=== PATIENT | female | born 1950 | race Caucasian/White ===

== ENCOUNTER 2018-01-15 01:24 | Inpatient (IN) | payer OTHER ==
[~2018-01-15] VITALS: Ht 160 cm; Wt 60.8 kg
[~2018-01-15 01:24] MED LIST: AMBIEN10 M1 PO; EVISTA60 MG PO; NIFEDIPINE ER60 M2 PO; XANAX1 M1 PO
--- NOTE | 2018-01-15 08:53 | Admission Core Measures ---
Acute Coronary Syndrome (CM) ACS Core Measures Acute Coronary Syndrome Diagnosis No Congestive Heart Failure (NEW) CHF Core Measures Congestive Heart Failure Diagnosis No Cerebrovascular Accident (NEW) CVA Core Measures CVA/TIA Diagnosis No Venous Thromboembolism VTE Core Lucia (View Protocol) VTE Risk Factors Surgery No Mechanical VTE Prophylaxis d/t N/A MechProphylax Ordered No VTE Pharm Prophylaxis d/t NA PharmProphylax ordered Problem List As ranked by this Provider includes Assessment & Plan 1. Unilateral primary osteoarthritis, left hip HOME MEDS Home Med List Alprazolam (Xanax) 1 MG TABLET 1 TAB PO BIDP PRN ANXIETY (Reported) Nifedipine (Nifedipine ER) 60 MG TAB.ER.24 1 TAB PO DAILY HTN (Reported) Raloxifene Hydrochloride (Evista) 60 MG TABLET 1 TAB PO DAILY OSTEOPOROSIS ( Reported) Zolpidem Tartrate (Ambien) 10 MG TABLET 1 TAB PO QPMP SLEEP (Reported)
--- NOTE | 2018-01-15 09:12 | Surg Short-stay <48hrs Dis Sum ---
Visit Information Visit Dates Admission Date: 01/15/18 Surgical Short Stay DC Summary Admission Diagnosis: Left hip OA Final Diagnosis: Same s/p L THR Procedure(s): L THR Summary/Significant Findings: Patient was admitted to the hospital for an elective total joint replacement. Procedure was tolerated well and patient was transferred to a general surgical floor. Diet was advanced and tolerated. Physical therapy performed evaluation and treatment. At time of hospital discharge, vital signs were stable, neurovascular status was intact and pain was controlled with the use of oral pain medications. Condition at Discharge: Stable Discharge Disposition: home health services Discharge instructions provided to patient/family: Yes Post discharge follow-up plan: [address] Elizabeth
[2018-01-15] MEDS ORDERED: DILAUDID2 M1 PO (09:21)
[2018-01-15] MEDS ORDERED: PROTONIX20 M1 PO (09:21)
[2018-01-15] MEDS ORDERED: COLACE100 M1 PO (09:21)
[2018-01-15] MEDS ORDERED: MIRALAX17 G1 PO (09:21)
[2018-01-15] MEDS ORDERED: ASPIRIN EC81 M1 PO (09:21)
--- NOTE | 2018-01-15 09:26 | Patient Discharge Instructions ---
Discharge Instructions General Discharge Information You were seen/treated for: Left hip osteoarthritis You had these procedures: Left total hip replacement on 01/15/18 Watch for these problems: Increasing pain despite the use of pain medication Increasing redness, warmth or swelling Drainage of any type from incision Inability to bear weight on operative leg Persistent nausea and vomiting Fever greater than 101.5 degrees Other wound care: Please keep wound clean and dry. No ointments or lotions of any type on or near incision. Your dressing will be changed by your nurse on the second day after your surgery. Daily dry dressing changes are recommended each day thereafter. Do not soak your wound- no tub baths/swimming. You may shower 48hr after surgery. Special Instructions: Aspirin: You are taking this medication to help prevent blood clot formation. Please take with food to protect your stomach lining. Please take as directed. Constipation: Pain medication can cause constipation. It is recommended that you take Colace and Miralax each day. Discontinue this medication if you develop loose stool or diarrhea. If you wish to continue this medication, it is available over the counter. If you are unable to move your bowels or unable to pass gas and are developing bloating, nausea, or vomiting as a result, please contact your doctor. Diet Continue normal diet: Yes Activity Full Activity/No Limits: No Activity Self Limited: Yes Activity Limited to: Weight bear as tolerated Additional ACTIVITY Info: Use rolling walker as needed Acute Coronary Syndrome Inclusion Criteria At DC or during hospital stay patient has or had the following: ACS DIAGNOSIS No Discharge Core Measures Meds if any: Prescribed or Continued at Discharge Meds if any: NOT Prescribed or Continued at Discharge Congestive Heart Failure Inclusion Criteria At DC or during hospital stay patient has or had the following: CHF DIAGNOSIS No Discharge Core Measures Meds if any: Prescribed or Continued at Discharge Meds if any: NOT Prescribed or Continued at Discharge Cerebrovascular accident Inclusion Criteria At DC or during hospital stay patient has or had the following: CVA/TIA Diagnosis No Discharge Core Measures Meds if any: Prescribed or Continued at Discharge Meds if any: NOT Prescribed or Continued at Discharge Venous thromboembolism Inclusion Criteria VTE Diagnosis No VTE Type NONE VTE Confirmed by (Test) NONE Discharge Core Measures - Per Current guidelines, there needs to be overlap - treatment for the first 5 days of Warfarin therapy. - If discharged on Warfarin prior to 5 days of - overlap therapy, the patient will need to be - assessed for post discharge needs including - *Post discharge parental anticoagulation - *Warfarin and/or parental anticoagulation education - *Follow up date to check INR post discharge At least 5 days overlap therapy as Inpatient No Meds if any: Prescribed or Continued at Discharge Note: Overlap Therapy is Warfarin and Anticoagulant Meds if any: NOT Prescribed or Continued at Discharge
--- NOTE | 2018-01-15 10:24 | RADIOLOGY REPORT ---
EXAMINATION: XR HIP, LEFT CLINICAL INFORMATION: Left total hip replacement. COMPARISON: None TECHNIQUE: Two views of the left hip. FINDINGS: Prosthetic components of the left total hip arthroplasty are appropriately aligned. No periprosthetic fracture. Gas from recent surgery is present in the surrounding soft tissues. IMPRESSION: Normal postoperative appearance of the left total hip prosthesis.
[2018-01-15 11:15] VITALS: BP 122/80
[2018-01-15 15:03] VITALS: BP 120/80
--- NOTE | 2018-01-15 15:10 | PN- Orthopedic ---
Subjective Subjective: POSTOP CHECK Patient reports ambulating well with PT. Afterwards, she reports pain in her right thigh that radiated medially and was unrelieved with one dilaudid. She denies taking any medication for breakthrough pain. She states she is tolerating a diet without any nausea or vomiting. She denies any chest pain, shortness of breath, numbness or parathesias. Patient has voided. She offers no other complaints. Objective Vital Signs and I&Os Vital Signs Date Time Temp Pulse Resp B/P B/P Pulse O2 O2 Flow FiO2 Mean Ox Delivery Rate 01/15 1503 97.3 73 18 120/80 98 01/15 1241 96.2 01/15 1115 93.0 62 16 122/80 97 Room Air Intake & Output 01/15 1600 01/15 0801/15 0000 01/14 1600 01/14 0801/14 0000 Intake Total Output Total 600 Balance -600 Output, Urine 600 Patient 134 lb Weight Physical Exam: Gen - appears nauseous in bed in nad with 3L O2 via nc Cardiac - S1S2, RRR Lungs - CTAB Abd - soft, nontender, nondistended Ext - L hip dressing c/d/i, ice, moves all extremities, compartment soft, distal motor an sensory intact, alps in place, no edema or calf tenderness Current Medications: Current Medications Sig/Evan Start time Last Medication Dose Route Stop Time Status Admin Acetaminophen 650 MG Q4P PRN 01/15 1100 AC PO Acetaminophen 0 .STK-MED ONE 01/15 0716 DC PO Acetaminophen 0 .STK-MED ONE 01/15 0715 DC PO Acetaminophen 975 MG ONCE 01/15 0000 DC PO 01/15 2359 Alprazolam 1 MG BID PRN 01/15 0900 AC PO 01/22 0859 Aspirin Buffered 81 MG BID 01/15 2100 AC PO Cefazolin Sodium 2 GM IQ8 01/15 1600 AC N/A 1 UNIT IV 01/16 0029 Cefazolin Sodium 2,000 MG ONCE 01/15 0000 DC IV 01/15 2359 Dextrose/Sodium 1,000 ML .[id number] 01/15 1100 AC Chloride IV Docusate Sodium 100 MG BID 01/15 2100 AC PO Fentanyl Citrate 100 MCG .STK-MED ONE 01/15 0711 DC IM 01/15 0712 Hydromorphone HCl 2 MG ONCE ONE 01/15 1530 DC 01/15 PO 01/15 1531 1531 Hydromorphone HCl 2 MG Q4P PRN 01/15 1100 AC 01/15 PO 1425 Hydromorphone HCl 4 MG Q4P PRN 01/15 1100 AC PO Ketorolac 15 MG Q6 PRN 01/15 0915 AC Tromethamine IV Midazolam HCl 4 MG .STK-MED ONE 01/15 0711 DC IM 01/15 0712 Morphine Sulfate 2 MG Q2P PRN 01/15 1100 AC IV Nifedipine 60 MG DAILY 01/16 09 AC PO Ondansetron HCl 4 MG Q6P PRN 01/15 1100 AC IV Oxycodone HCl 0 .STK-MED ONE 01/15 0715 DC PO Oxycodone HCl 10 MG ONCE 01/15 0000 DC PO 01/15 2359 Polyethylene Glycol 17 GM DAILY 01/16 09 AC PO Promethazine HCl 12.5 MG Q6P PRN 01/15 1100 AC IV 01/22 0859 Tranexamic Acid 2,000 MG .STK-MED ONE 01/15 0711 DC IV 01/15 0712 Zolpidem Tartrate 10 MG AT BEDTIME 01/15 2100 AC PO Assessment/Plan Assessment/Plan 67 F w/ a hx of HTN, anxiety and insomnia who is POD 0 s/p L THR OOB PT, WBAT Cont reg diet, IVF Postop abx - ancef x2 Pain regimen prn DVT ppx - alps, teds, asa 81 bid Home meds ordered Bowel regimen on board Encourage IS Anticipate home with [facility] tomorrow Core Measures Venous Thromboembolism VTE Risk Factors Surgery No Mechanical VTE Prophylaxis d/t N/A MechProphylax Ordered No VTE Pharm Prophylaxis d/t NA PharmProphylax ordered
--- NOTE | 2018-01-15 16:55 | Operative Report ---
Operative/Inv Procedure Report Surgery Date: 01/15/18 Name of Procedure: Left total hip replacement Pre-Operative Diagnosis: Primary left hip DJD Post-Operative Diagnosis: Same Estimated Blood Loss: 250 Surgeon/Dairy Farm Worker: Clara VICTOR,Frank Hall Anesthesia: block Operative/Procedure Note Note: Description of Procedure: The patient was taken to the operating room and positively identified. After induction of spinal anesthesia and administration of appropriate pre-operative antibiotics, the patient was positioned supine on the operating room table and all bony prominences were well padded. After performing a surgical timeout, the left lower extremity was prepped and draped in the usual sterile fashion. A direct anterior approach was made to the left hip. The incision was carried sharply through superficial soft tissues to the level of the fascia. Meticulous hemostasis was maintained with Bovie electocautery. The fascia over the tensor fascia tino muscle was opened sharply and the interval between the TFL and the sartorius was entered bluntly taking care to stay lateral to the lateral femoral cutaneous nerve. Retractors were placed around the femoral neck and the pericapsular fat was identified. The ascending branches of the lateral femoral circumflex vessels were identified and carefully coagulated. The pericapsular fat and anterior capsule were then resected. A napkin ring osteotomy was performed and the femoral head was removed without difficulty. Attention was then turned to the acetabulum. After appropriate placement of retractors, the acetabulum was exposed. Soft tissue was cleaned from the acetabular margin and notch. Overhanging osteophytes were removed and the teardrop was exposed. The acetabulum was then sequentially reamed to accept a 52 mm [place] Tritanium hemispherical solid shell. This was impacted into place in the appropriate position and fitted with a 32 mm Trident X3 zero degree polyethylene insert. Attention was then turned to the femur. After performing the appropriate ligament releases, the proximal femur was exposed. It was then sequentially broached to accept a size #4 [place] Accolade II stem. This was trialed for leg length and stability. The trial component was removed and the final component was impacted into place. The trunnion was carefully cleaned and fit with a 32 mm, +0 Biolox delta ceramic femoral head. The hip was reduced and put through a full range of motion and found to be stable. The articular space was then irrigated with sterile saline. The periarticular soft tissues were infilitrated with Marcaine. The fascial layer was closed with interrupted #1 vicryl suture and the skin was re-approximated with interrupted 2 -0 vicryl. The skin was closed with a running 3-0 V-Lock suture. Steri-strips and a sterile dressing were applied. The patient was awakened and taken to the recovery room in satisfactory condition.
[2018-01-15 19:17] VITALS: BP 118/60
[2018-01-15 23:11] VITALS: BP 124/64
[2018-01-16 06:44] VITALS: BP 122/70
[2018-01-16 08:00] VITALS: BP 118/72
--- NOTE | 2018-01-16 08:10 | PN- Orthopedic ---
Subjective Subjective: pt in bed, complains of aching left thigh, pain when flexing hip. ambulated with PT yesterday. tolerating diet, voiding. denies paresthesias. denies cp/sob Objective Vital Signs and I&Os Vital Signs Date Time Temp Pulse Resp B/P B/P Pulse O2 O2 Flow FiO2 Mean Ox Delivery Rate 01/16 0644 97.6 82 16 122/70 97 Room Air 01/15 2311 98.4 74 16 124/64 96 Room Air 01/15 2218 Room Air Room Air 01/15 1917 97.8 85 20 118/60 98 Room Air 01/15 1503 97.3 73 18 120/80 98 01/15 1241 96.2 01/15 1115 93.0 62 16 122/80 97 Room Air Intake & Output 01/16 1600 01/16 0800 01/16 0000 01/15 1600 01/15 0800 01/15 0000 Intake Total 400 780 Output Total 300 200 600 Balance -300 200 180 Intake, IV 300 300 Intake, Oral 100 480 Number 0 Bowel Movements Output, Urine 300 200 600 Patient 134 lb Weight Physical Exam: gen- NAD resp- clear cardiac- rrr abd- soft, nt ext- left hip soft, dressing clean and dry. distal sensory and motor function intact. 2+ dp pulse Current Medications: Current Medications Sig/Evan Start time Last Medication Dose Route Stop Time Status Admin Acetaminophen 1,000 MG Q6H 01/16 0815 UNVr N/A 1 UNIT IV 01/17 0229 Acetaminophen 650 MG Q4P PRN 01/15 1100 AC PO Acetaminophen 975 MG ONCE 01/15 0000 DC PO 01/15 2359 Alprazolam 1 MG BID PRN 01/15 0900 AC PO 01/22 0859 Aspirin Buffered 81 MG BID 01/15 2100 AC 01/15 PO 2122 Cefazolin Sodium 2 GM IQ8 01/15 1600 DC 01/15 N/A 1 UNIT IV 01/16 0029 2308 Cefazolin Sodium 2,000 MG ONCE 01/15 0000 DC IV 01/15 2359 Dextrose/Sodium 1,000 ML .[id number] 01/15 1100 AC 01/15 Chloride IV 2322 Diazepam 2 MG TIDPRN PRN 01/15 1730 AC 01/15 PO 2015 Docusate Sodium 100 MG BID 01/15 2100 AC 01/15 PO 2122 Hydromorphone HCl 2 MG ONCE ONE 01/15 1530 DC 01/15 PO 01/15 1531 1531 Hydromorphone HCl 2 MG Q4P PRN 01/15 1100 AC 01/15 PO 1425 Hydromorphone HCl 4 MG Q4P PRN 01/15 1100 AC 01/16 PO 0638 Ketorolac 15 MG Q6 PRN 01/15 0915 AC 01/15 Tromethamine IV 2302 Morphine Sulfate 2 MG Q2P PRN 01/15 2100 AC 01/15 IV 2121 Morphine Sulfate 2 MG Q2P PRN 01/15 1100 DC IV Nifedipine 60 MG DAILY 01/16 09 AC PO Ondansetron HCl 4 MG Q6P PRN 01/15 1100 AC IV Oxycodone HCl 10 MG ONCE 01/15 0000 DC PO 01/15 2359 Polyethylene Glycol 17 GM DAILY 01/16 09 AC PO Promethazine HCl 12.5 MG Q6P PRN 01/15 1100 AC IV 01/22 0859 Zolpidem Tartrate 10 MG AT BEDTIME 01/15 2100 AC 01/15 PO 2121 Results Last 48 Hours of Labs: Laboratory Tests 01/16 0715 Chemistry Sodium Pending Potassium Pending Chloride Pending Carbon Dioxide Pending Anion Gap Pending BUN Pending Creatinine Pending BUN/Creatinine Ratio Pending Hematology CBC w Diff Pending WBC Pending RBC Pending Hgb Pending Hct Pending MCV Pending MCH Pending MCHC Pending RDW Pending Plt Count Pending MPV Pending Assessment/Plan Assessment/Plan 67 yo F sp L SHEY POD1. stable OOB PT, WBAT Cont reg diet- will dc IVF Pain regimen prn - will add ofirmev while here DVT ppx - alps, teds, asa 81 bid Home meds ordered Bowel regimen on board Encourage IS Anticipate home with [facility] later today Core Measures Venous Thromboembolism VTE Risk Factors Surgery No Mechanical VTE Prophylaxis d/t N/A MechProphylax Ordered No VTE Pharm Prophylaxis d/t NA PharmProphylax ordered
[2018-01-16 08:24] LABS: ABSOLUTE BASOPHIL COUNT 0 /CUMM (0.0-0.2); ABSOLUTE EOSINOPHIL COUNT 0.1 /CUMM (0.0-0.7); ABSOLUTE GRANULOCYTE CT 6.4 /CUMM (1.4-6.5); ABSOLUTE LYMPH COUNT 1.6 /CUMM (1.2-3.4); ABSOLUTE MONOCYTE COUNT 0.5 /CUMM (0.10-0.60); BASOPHIL % 0.3 % (0.0-2.0); EOSINOPHIL % 1.5 % (0-5); GRANULOCYTE % 74.4 % (42.2-75.2); HEMATOCRIT 31.2 % (37-47); MEAN CORPUSCULAR HGB 22.8 PG (27.0-31.0); MEAN CORPUSCULAR HGB CONC 31.3 G/DL (33.0-37.0); MEAN CORPUSCULAR VOLUME 72.7 FL (81.0-99.0); MEAN PLATELET VOLUME 9.8 FL (7.4-10.4); PLATELET COUNT 220 /CUMM (130-400); RBC DISTRIBUTION WIDTH 16.4 % (11.5-14.5); WHITE BLOOD CELL COUNT 8.6 /CUMM (4.8-10.8)
[2018-01-16 08:42] VITALS: BP 118/72
== END 2018-01-16 14:45 | disposition home health service (06) | DRG 470 ==
LOC: SDA 01:24 → ENRESERV 10:02 → ENTRNSPT 10:23 → EDTRNSPT 10:39 → EDTRNSPTSTS 10:39 → 2NA 10:48 → CMPTRNSPT 11:05 → CMPBEDREQ 11:58 → ENPENDDIS 01-16 09:03 → ENTRNSPT 01-16 14:31 → EDTRNSPT 01-16 14:44 → EDTRNSPTSTS 01-16 14:44 → 2NA 01-16 14:45 → CMPTRNSPT 01-16 15:04
PROVIDERS: Physician Assistant
PROC: 0SRB04A Replacement of Left Hip Joint with Ceramic on Polyethylene Synthetic Substitute, Uncemented, Open Approach (ICD-10-PCS; principal; 2018-01-15)
DX: M16.12 Unilateral primary osteoarthritis, left hip (principal); I10 Essential (primary) hypertension; Z85.3 Personal history of malignant neoplasm of breast
CPT/HCPCS: 2NASP; 36415; 73502-LT; 82436; 97110-GO; 97116-GO; 97161-GP; 97530-GO; J0131; J0690; J0735; J2405; J2550; J3490; J7042